=== PATIENT | male | born 1965 | race Caucasian/White ===

== ENCOUNTER → 2020-08-03 | Outpatient (CLI) | payer BC ==
[~2020-08-03] MED LIST: LISI-130 PO; LOVA20TA2 PO; METF-658 PO; PERFLUTREN PROTEIN-A MICROSPHR 0.22 MG/ML 3 ML VIAL. IV ONE; REGADENOSON 0.4 MG/5 ML DISP.SYRIN. IV ONE; [UNRECOGNIZED DRUG - OTHER]
--- NOTE | 2020-08-03 13:22 | CARD ---
MR#: [id number] Date of Study: 08/03/2020 Ordering Physician: SUN SALGUERO, Referring Physician: SUN SALGUERO Tech: Denice Kruger RDCS APPROVED REPORT EXAM: Two-dimensional and M-mode echocardiogram with Doppler and color Doppler. Other Information Quality : Fair INDICATION Increased Coronary Calcium Score Echo Enhancing Agent Agent/Amount Used: Optison 2mL 2D DIMENSIONS RVDd3.5 (2.9-3.5cm)Left Atrium(2D)3.5 (1.6-4.0cm) IVSd1.9 (0.7-1.1cm)Aortic Root(2D)4.0 (2.0-3.7cm) LVDd4.2 (3.9-5.9cm)LVOT Diameter2.3 (1.8-2.4cm) PWd0.9 (0.7-1.1cm)LVDs3.0 (2.5-4.0cm) FS (%) 27.6 %SV41.6 ml LVEF(%)54.0 (>50%) Aortic Valve AoV Peak Patrick.138.4cm/sAoV VTI26.8cm AO Peak GR.7.7mmHgLVOT Peak Patrick.81.4cm/s AO Mean GR.5mmHgAVA (VMAX)2.35cm2 BRIGITTE (VTI)2.60cm2 Mitral Valve MV E Fpaqbjix82.3cm/sMV DECEL [id number] MV A Wvlngqzb63.9cm/sE/A Ratio0.7 Pulmonary Vein S1 Binbloga32.5cm/sD2 Toryhowl57.6cm/s LEFT VENTRICLE The left ventricle is normal size. There is mild to moderate asymmetric septal hypertrophy. The left ventricular systolic function is normal and the ejection fraction is within normal range. The Ejectio n Fraction is 55-60%. There is normal LV segmental wall motion. Transmitral Doppler flow pattern is G rade I-abnormal relaxation pattern. RIGHT VENTRICLE The right ventricle is normal size. The right ventricular systolic function is normal. ATRIA The left atrium size is normal. The right atrium size is normal. The interatrial septum is intact wit h no evidence for an atrial septal defect or patent foramen ovale as noted on 2-D or Doppler imaging. AORTIC VALVE The aortic valve is bicuspid. Doppler and Color Flow revealed no significant aortic regurgitation. Th ere is no significant aortic valvular stenosis. MITRAL VALVE The mitral valve is calcified but opens well. There is no evidence of mitral valve prolapse. There is no mitral valve stenosis. Doppler and Color-flow revealed trace mitral regurgitation. TRICUSPID VALVE The tricuspid valve is normal in structure and function. Doppler and Color Flow revealed no tricuspid valve regurgitation noted. There is no tricuspid valve stenosis. PULMONIC VALVE The pulmonic valve is not well visualized. Doppler and Color Flow revealed no pulmonic valvular regur gitation. There is no pulmonic valvular stenosis. GREAT VESSELS The aortic root is mildly enlarged. The ascending aorta is moderately dilated at 4.5 cm. The IVC is n ormal in size and collapses >50% with inspiration. PERICARDIAL EFFUSION There is no evidence of significant pericardial effusion. Critical Notification Critical Value: No <Conclusion> The left ventricle is normal size. The left ventricular systolic function is normal and the ejection fraction is within normal range. The Ejection Fraction is 55-60%. There is mild to moderate asymmetric septal hypertrophy. Doppler and Color Flow revealed no significant aortic regurgitation. There is no significant aortic valvular stenosis. Doppler and Color-flow revealed trace mitral regurgitation. Doppler and Color Flow revealed no tricuspid valve regurgitation noted. The aortic root is mildly enlarged. The ascending aorta is moderately dilated at 4.5 cm. Signed by : Dmitri Ontiveros MD Electronically Approved : 08/03/2020 13:21:25
--- NOTE | 2020-08-03 13:38 | RAD ---
MR#: [id number] Date of Study: 08/03/2020 Ordering Physician: SUN SALGUERO, Referring Physician: MICHAEL RODRIGUEZ Tech: Kami Hurt RT (R) (N) APPROVED REPORT Test Type: Pharmacological Stress Nurse/Tech: Carson Jeff RN Test Indications: Elevated Coronary Artery Calcium Score Cardiac History: HTN, See EMR. Medications: Insulin, See EMR. Medical History: DM, See EMR. Resting ECG: SR Resting Heart Rate: 76 bpm Resting Blood Pressure: 146/70mmHg Pretest Chest Pain: No chest pain Nurse/Tech Notes Lungs CTA, Heart tones regular. Consent: The procedure was explained to the patient in lay terms. Informed consent was witnessed. Nick eout was entered into [employer]. History and Stress Test performed by MICHAEL DaiTCChasity, ARRT (R) (N) Pharm. Details Pharmacologic stress testing was performed using 0.4mg per 5ml of regadenoson given intravenously ove r 7-10 seconds. Stress Symptoms Dyspnea and Dizziness. Pt attempeted a treadmill stress test. Pt needed to stop 7:24min into the niko dmill stress due to SOB and leg tiredness. Pt's heart rate was a max of 122, for a 141 target; during his treadmill. Pt sat down to rest and Lexiscan was performed. Post lexiscan pt was dizzy and had a BP of 95/50; he was given 3 bottles of water. Pt's BP increased to 121/57, after water and 10 min of resting; and symptoms were relieved. POST EXERCISE Reason for Termination: Infusion complete Max HR: 90 bpm Max Blood Pressure: 110/54mmHg Blood Pressure response to exercise: Normal blood pressure response during stress. Heart Rate response to exercise: WNL Chest Pain: No. Arrhythmia: No. ST Change: No. INTERPRETATION Stress EKG Conclusion: The resting EKG showed a sinus rhythm with minimal nonspecific ST segment conde ges. The stress EKG showed no significant change from baseline. No EKG evidence of stress-induced ischemia. Imaging Protocol IMAGE PROTOCOL: Rest Tc-99m/stress Tc-99m 1 day Rest: Stress: Viability: Radiopharm.Tc99m KhfdjznyiEf33t Sestamibi Dose10.6mCi 32mCi Duration 15min. 10min. Img Date 08/03/2020 08/03/2020 Inj-Img [id number]. 60min. Rest Admin Site:IV - Right AntecubitalAdministrator:Kami Hurt, RT (R)(N) Stress Admin Site: IV - Right AntecubitalAdministrator: Sarah Valenzuela, MICHAELTCChasity, ARRT (R)(N) STRESS DATA End Diast. Vol.125.0mlAv. Heart Rate71.0bpm End Syst. Vol.36.0mlCO Index BSA6.4L/min Myocardial Ifdc677.0gEject. Ocwmxhjn84.0% Stress Rates Pk. Fill Rate2.85EDV/secLVtime Pk. Fill 194.34msec Pk. Empty Rate4.33ESV/secLVtime Pk. Wtnlk538.16msec /3 Pk. Fill1.29EDV/sec Stress Scores Regional WT0.00Summed WT3.00 Regional WM0.00Summed WM2.00 LV Perfusion The stress scans show no significant defects. The rest scans show no significant defects. Nuclear imaging shows no reversible ischemia or infarct. Wall Motion Left ventricular systolic function is normal with no regional wall motion abnormalities and an ejecti on fraction of 65%. TID is 1.22 LV Perf. Quant 17 Seg. SSS0.00 17 Seg. SRS0.00 17 Seg. SDS0.00 Stress Defect Extent (% LAD)0.00Rest Defect Extent (% LAD)0.00Rev. Defect Extent (% LAD)0.00 Stress Defect Extent (% LCX) 0.00Rest Defect Extent (% LCX)0.00Rev. Defect Extent (% LCX)0.00 Stress Defect Extent (% RCA)0.00Rest Defect Extent (% RCA)0.00Rev. Defect Extent (% RCA)0.00 Stress Defect Extent (% AYAD)0.00Rest Defect Extent (% AYAD)0.00Rev. Defect Extent (% AYAD)0.00 Conclusion 1. Initial attempted at a treadmill test was discontinued due to shortness of breath and leg discomfo rt. 2. On Lexiscan nuclear stress testing there was no EKG evidence of stress-induced ischemia. 3. Nuclear imaging showed no reversible ischemia or infarct. 4. Normal left ventricular systolic function with an ejection fraction of 65%. TID of 1.22. 5. Low to moderately low risk Lexiscan nuclear stress test. Signed by : Dmitri Ontiveros MD Electronically Approved : 08/03/2020 13:38:23
== END ==
LOC: NM 09:25
PROVIDERS: ATTEND Internal Medicine Cardiovascular Disease
DX: I34.8 Other nonrheumatic mitral valve disorders (principal); I25.10 Atherosclerotic heart disease of native coronary artery without angina pectoris; R06.02 Shortness of breath; E11.9 Type 2 diabetes mellitus without complications; I11.9 Hypertensive heart disease without heart failure
CPT/HCPCS: 78452; 93017; A9500; C8929; J2785; Q9956